=== PATIENT | male | born 1945 | race Caucasian/White ===

== ENCOUNTER → 2016-12-24 | Outpatient (CLI) | payer BC ==
[~2016-12-24] MED LIST: ASCO500T3 PO; DVN/160 PO; INDA1TAB3 PO; LUTE15CA; LUTE15CA PO; MULT-506 PO; PRLSR20 PO; RANI150T3 PO; RANI300T2 PO
[2016-12-24 13:30] LABS: BASO % 0.1 %; BASO ABS # 0.01 K/uL (0-0.2); COMPLETE YES; HEMATOCRIT 43.2 % (42-52); IG% 0.2 %; LYMPH % 15.1 %; LYMPH ABS # 1.36 K/uL (1.2-3.4); MEAN CELL VOLUME 97.5 fL (80-100); MEAN CORPUSCULAR HEMOGLOBIN 34.5 pg (25-34); MEAN CORPUSCULAR HGB CONC 35.4 g/dl (32-36); MEAN PLATELET VOLUME 9.8 fL (7.4-10.4); MONO % 10.2 %; NEUT % 72.4 %; PLATELET COUNT 236 K/uL (130-400); RED BLOOD COUNT 4.43 M/uL (4.7-6.1); WHITE BLOOD COUNT 9.02 K/uL (4.8-10.8)
[2016-12-24 14:01] LABS: BLOOD UREA NITROGEN 21 mg/dl (7-18); BUN/CREATININE RATIO 15.9 (10-20); CARBON DIOXIDE 25 mmol/L (21-32); CHLORIDE 106 mmol/L (98-107); GLUCOSE 99 mg/dl (70-99); POTASSIUM 3.8 mmol/L (3.5-5.1); SODIUM 142 mmol/L (136-145)
[2016-12-24 14:13] LABS: CALCIUM 9.3 mg/dl (8.5-10.1)
== END | disposition home or self-care (01) ==
LOC: C.LABBC 11:24
PROVIDERS: ATTEND Internal Medicine
DX: I10 Essential (primary) hypertension (principal)

== ENCOUNTER → 2017-02-06 | Day surgery (SDC) | payer BC ==
[2017-01-30 13:08] VITALS: BMI 31.0
[~2017-02-06] VITALS: Ht 182.9 cm; Wt 106.8 kg
[~2017-02-06] MED LIST changes: +LIDOCAINE HCL 2% 2 ML VIAL (20MG/ML) ONE; -LUTE15CA; +PROPOFOL IV EMULSION 10 MG/ML 20 ML VIAL IV ONE; -RANI150T3 PO; +SODIUM CHLORIDE 0.9% 500ML 500 ML IV ONE
[2017-02-06 14:49] VITALS: Ht 182.9 cm; Wt 106.8 kg
[2017-02-06 14:51] VITALS: TEMP 36.7
--- NOTE | 2017-02-06 15:36 | Endo History and Physical ---
History & Physical Date of Service: Feb 06, 2017. Chief Complaint: CHANGE IN BOWEL HABITS Referring Physician: DR RASMUSSEN History of Present Illness 71 yo CM who presents for Colonoscopy secondary to change in bowel habits. 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) Hx Thoracic Surgery: No Hx Orthopedic: Yes (RT KNEE SX X 3, LEFT KNEE SX X2) Hx Urinary Tract Surgery: No Family History None Social History Smoking Status: Never Smoker Hx Substance Use: No Hx Alcohol Use: No Allergies Coded Allergies: Penicillins (Verified Allergy, Unknown, ITCHING/FEVER, 01/30/17) Uncoded Allergies: SEAFOOD (Allergy, Unknown, vomiting, 10/31/11) Current Medications Reported Home Medications Medications Dose Route/Sig Max Daily Dose Days Date Category Vitamin C (Ascorbic Acid) 500 Mg Tab 1 Tab PO HS 01/30/17 Reported Lutein (Lutein-Zeaxanthin) 1 Cap Cap 1 Cap PO HS 01/30/17 Reported Zantac (Ranitidine HCl) 300 Mg Tab 300 Mg PO HS 01/30/17 Reported Multivitamin (Multivitamins) Tab 1 Tab PO QAM 01/30/17 Reported Prilosec (Omeprazole) 20 Mg Capcr 20 Mg PO Q2D 01/30/17 Reported Diovan (Valsartan) 160 Mg Tab 160 Mg PO QAM 01/30/17 Reported Lozol (Indapamide) 1.25 Mg Tab 1.25 Mg PO QAM 10/31/11 Reported Vital Signs Weight (Kilograms): 106.82 Height (Feet): 6 Height (Inches): 0 Date Time Temp Pulse Resp B/P (MAP) Pulse Ox O2 Delivery O2 Flow Rate FiO2 02/06/17 14:51 36.7 87 20 142/81 (101) 96 Room Air Physical Exam General Appearance: WD/WN, no apparent distress Respiratory/Chest: Auscultation: breath sounds normal Cardiovascular: Heart Auscultation: RRR Abdomen: Bowel Sounds: normal Inspection & Palpation: soft, non-distended, no tenderness, guarding & rebound Assessment and Plan Assessment: 71 yo CM who presents for Colonoscopy secondary to change in bowel habits. Plan: Proceed with colonoscopy.
--- NOTE | 2017-02-06 16:00 | Discharge Instructions ---
Endoscopy Patient Instructions Date / Procedure(s) Performed Feb 06, 2017. Colonoscopy Allergy Information Coded Allergies: Penicillins (Verified Allergy, Unknown, ITCHING/FEVER, 01/30/17) Uncoded Allergies: SEAFOOD (Allergy, Unknown, vomiting, 10/31/11) Discharge Date / Findings Feb 06, 2017. Rectal polyp Colon polyp Medication Instructions OK to resume all medications today as prescribed Reported Home Medications Medications Dose Route/Sig Max Daily Dose Days Date Category Vitamin C (Ascorbic Acid) 500 Mg Tab 1 Tab PO HS 01/30/17 Reported Lutein (Lutein-Zeaxanthin) 1 Cap Cap 1 Cap PO HS 01/30/17 Reported Zantac (Ranitidine HCl) 300 Mg Tab 300 Mg PO HS 01/30/17 Reported Multivitamin (Multivitamins) Tab 1 Tab PO QAM 01/30/17 Reported Prilosec (Omeprazole) 20 Mg Capcr 20 Mg PO Q2D 01/30/17 Reported Diovan (Valsartan) 160 Mg Tab 160 Mg PO QAM 01/30/17 Reported Lozol (Indapamide) 1.25 Mg Tab 1.25 Mg PO QAM 10/31/11 Reported Provider Instructions Activity Restrictions - No exercising or heavy lifting for 24 hours. - Do not drink alcohol the day of the procedure. - Do not drive a car or operate machinery until the day after the procedure. - Do not make any important decisions or sign important papers in 24 hours after the procedure. Following Day: - Return to full activity which may include returning to work/school. Diet Start your diet with liquids and light foods (jello, soup, juice, toast). Then eat your usual diet if not nauseated. Treatment For Common After Affects For mild abdominal pain, bloating, or excessive gas: - Rest - Eat lightly - Lie on right side Follow-Up Information Follow-up with DR RASMUSSEN as scheduled Anesthesia Information What You Should Know You have had a procedure that required some medicine to reduce anxiety and discomfort. This treatment is called moderate sedation. After receiving the treatment, you may be sleepy, but you will be able to breathe on your own. The effects of the treatment may last for several hours. Follow these instructions along with Activity/Diet recommendations noted above: * Do NOT do anything where dizziness or clumsiness would be dangerous. * Rest quietly at home today, then you can be up and about tomorrow. * Have a responsible person stay with you the rest of today. * You may have had an I.V. today. If so, you may take the dressing off later today. Recommendations Call your doctor if: * Trouble breathing * Continuous vomiting for more than 24 hours * Temperature above 101 degrees * Severe abdominal pain or bloating * Pain not relieved by pain medicine ordered * There is increased drainage or redness from any incision * A large amount of rectal bleeding greater than 2-3 tablespoons. (If you had a polyp/s removed or have hemorrhoids, a small amount of blood - from the rectum is to be expected.) * You have any unanswered questions or concerns. IN THE EVENT OF A SERIOUS EMERGENCY, GO TO THE NEAREST EMERGENCY ROOM Your discharge instructions were prepared by provider Paul Granados. Patient Instructions Signature Page Gurpreet Pal Patient (or Guardian) Signature/Date: I have read and understand the instructions given to me by my caregivers. Caregiver/RN/Doctor Signature/Date: The above-named patient and/or guardian has received patient instructions on this date. + Original Patient Signature Page (only) stays with chart. Please make copy for patient.
--- NOTE | 2017-02-06 16:20 | GI REPORT ---
Procedure Date: 02/06/2017 3:29 PM Procedure: Colonoscopy Indications: Change in bowel habits Medicines: Monitored Anesthesia Care Complications: No immediate complications. Estimated Blood Loss: Estimated blood loss: none. Procedure: Pre-Anesthesia Assessment: - Prior to the procedure, a History and Physical was performed, and patient medications and allergies were reviewed. The patient's tolerance of previous anesthesia was also reviewed. The risks and benefits of the procedure and the sedation options and risks were discussed with the patient. All questions were answered, and informed consent was obtained. Prior Anticoagulants: The patient has taken no previous anticoagulant or antiplatelet agents. ASA Grade Assessment: II - A patient with mild systemic disease. After reviewing the risks and benefits, the patient was deemed in satisfactory condition to undergo the procedure. After I obtained informed consent, the scope was passed under direct vision. Throughout the procedure, the patient's blood pressure, pulse, and oxygen saturations were monitored continuously. The scope was introduced through the anus and advanced to the terminal ileum. The colonoscopy was performed without difficulty. The patient tolerated the procedure well. The quality of the bowel preparation was good. The terminal ileum, ileocecal valve, appendiceal orifice, and rectum were photographed. Findings: Two sessile polyps were found in the rectum and in the ascending colon. The polyps were 3 to 4 mm in size. These polyps were removed with a hot snare. Resection and retrieval were complete. Non-bleeding internal hemorrhoids were found during retroflexion. The hemorrhoids were small. Impression: - Two 3 to 4 mm polyps in the rectum and in the ascending colon, removed with a hot snare. Resected and retrieved. - Non-bleeding internal hemorrhoids. Recommendation: - Resume previous diet. - Continue present medications. - Repeat colonoscopy for surveillance based on pathology results. - Return to primary care physician as previously scheduled. Paul Granados DO 02/06/2017 4:19:32 PM This report has been signed electronically. Note Initiated On: 02/06/2017 3:29 PM I attest to the content of the Intraoperative Record and orders documented therein, exceptions below
[2017-02-06 16:35] VITALS: BP 121/78; PULSE 79; O2SAT 95
--- NOTE | 2017-02-06 23:38 | Anesthesiology Progress Note ---
Anesthesia Post Op Note Date & Time Feb 06, 2017 at 1640 Vital Signs Pain Intensity: 0 Vital Signs Past 12 Hours Date Time Temp Pulse Resp B/P (MAP) Pulse Ox O2 Delivery O2 Flow Rate FiO2 02/06/17 16:35 79 20 121/78 (92) 95 Room Air 02/06/17 16:19 80 20 121/59 (79) 94 02/06/17 16:04 70 20 114/69 (84) 95 Room Air 02/06/17 14:51 36.7 87 20 142/81 (101) 96 Room Air Notes Mental Status: alert / awake / arousable, participated in evaluation Pt Amnestic to Procedure: Yes Nausea / Vomiting: adequately controlled Pain: adequately controlled Airway Patency, RR, SpO2: stable & adequate BP & HR: stable & adequate Hydration State: stable & adequate Anesthetic Complications: no major complications apparent
== END | disposition home or self-care (01) ==
LOC: C.GI 14:32
PROVIDERS: ATTEND Internal Medicine
DX: R19.4 Change in bowel habit (principal); D12.2 Benign neoplasm of ascending colon; K62.1 Rectal polyp; K64.8 Other hemorrhoids; M19.90 Unspecified osteoarthritis, unspecified site; I10 Essential (primary) hypertension; Z90.89 Acquired absence of other organs; J45.909 Unspecified asthma, uncomplicated; K21.9 Gastro-esophageal reflux disease without esophagitis; Z85.828 Personal history of other malignant neoplasm of skin

== ENCOUNTER → 2017-06-07 | Outpatient (CLI) | payer BC ==
[~2017-06-07] MED LIST changes: -LIDOCAINE HCL 2% 2 ML VIAL (20MG/ML) ONE; -PROPOFOL IV EMULSION 10 MG/ML 20 ML VIAL IV ONE; -SODIUM CHLORIDE 0.9% 500ML 500 ML IV ONE
[2017-06-07 13:38] LABS: BASO % 0.1 %; BASO ABS # 0.01 K/uL (0-0.2); COMPLETE YES; HEMATOCRIT 43.3 % (42-52); IG% 0.1 %; LYMPH % 15.4 %; LYMPH ABS # 1.23 K/uL (1.2-3.4); MEAN CELL VOLUME 98.2 fL (80-100); MEAN CORPUSCULAR HEMOGLOBIN 33.8 pg (25-34); MEAN CORPUSCULAR HGB CONC 34.4 g/dl (32-36); MEAN PLATELET VOLUME 9.9 fL (7.4-10.4); MONO % 11.6 %; NEUT % 70.8 %; PLATELET COUNT 235 K/uL (130-400); RED BLOOD COUNT 4.41 M/uL (4.7-6.1)
[2017-06-07 13:57] LABS: BLOOD UREA NITROGEN 22 mg/dl (7-18); BUN/CREATININE RATIO 18.1 (10-20); CALCIUM 8.9 mg/dl (8.5-10.1); CARBON DIOXIDE 26 mmol/L (21-32); CHLORIDE 106 mmol/L (98-107); CREATININE 1.23 mg/dl (0.60-1.40); GLUCOSE 107 mg/dl (70-99); POTASSIUM 3.9 mmol/L (3.5-5.1); SODIUM 140 mmol/L (136-145); URIC ACID 7.8 mg/dl (2.6-7.2)
[2017-06-07 14:01] LABS: ESTIMATED AVERAGE GLUCOSE 123 mg/dl; HA1C FLAG Normal (Normal)
[2017-06-07 14:05] LABS: URINE APPEARANCE CLEAR (CLEAR); URINE BILIRUBIN NEG (NEG); URINE COLOR YELLOW; URINE EPITHELIAL CELL AUTO 0-5 /lpf (0-5); URINE NITRITE NEG (NEG); URINE SPECIFIC GRAVITY 1.018 (1.000-1.030); UROBILINOGEN NEG (NEG)
[2017-06-07 14:08] LABS: CHOLESTEROL 121 mg/dl (0-200); HDL CHOLESTEROL 41 mg/dl; LDL CHOLESTEROL CALCULATED 64 mg/dl; TRIGLYCERIDES 79 mg/dl (0-150); VERY LOW DENSITY LIPOPROT CALC 16 mg/dl
[2017-06-07 14:14] LABS: MANUAL MICROSCOPIC REQUIRED? NO; REVIEW REQ? NO
== END | disposition home or self-care (01) ==
LOC: C.LABBC 12:16
PROVIDERS: ATTEND Internal Medicine
DX: I10 Essential (primary) hypertension (principal)

== ENCOUNTER → 2017-07-08 | Outpatient (CLI) | payer BC | END | disposition home or self-care (01) | LOC: C.LAB1850 14:40 | PROVIDERS: ATTEND Internal Medicine | DX: I10 Essential (primary) hypertension (principal) ==

== ENCOUNTER 2020-02-18 13:49 | Observation (INO) ==
[2020-02-18] MEDS ORDERED: ASPIRIN CHEW 324 MG PO STA (14:05)
--- NOTE | 2020-02-18 14:05 | Emergency Department Note ---
Impression & Plan Angina pectoris, unstable, Chest pain, Abnormal ECG ED Provider Note NAME: DEBBIE HINTON AGE: 74 SEX: M : 1945 ARRIVES VIA: Walk-In INFORMANT: Patient ED PROVIDER(S): Edi Bailey DO CHIEF COMPLAINT: Exertional chest pain HPI: Patient is a 74-year-old male with past medical history of hypertension presents the ER for exertional chest pain which is been present for the past 2 weeks. He notes he gets a tightness in the middle of his chest. It resolves with rest. Last pain was last Saturday. He denies any shortness of breath with it he does get some left arm numbness. No jaw pain. No belly pain nausea vomiting or diarrhea. No dysuria urgency or frequency. Patient saw cardiology who referred him into the ER. ROS: See above HPI for pertinent positives & negatives. A total of 10 systems reviewed and were otherwise negative. PAST MEDICAL HISTORY:See Below PAST SURGICAL HISTORY:See Below FAMILY HISTORY:See Below SOCIAL HISTORY:See Below HOME MEDICATIONS:See Below ALLERGIES:See Below VITALS:See Below PHYSICAL EXAMINATION: GENERAL: Sitting up in bed, alert, well appearing, well nourished, no distress, non-toxic EYE EXAM: normal conjunctiva. OROPHARYNX: no exudate, no erythema, lips, buccal mucosa, and tongue normal and mucous membranes are moist NECK: supple, no nuchal rigidity, no adenopathy, non-tender LUNGS: Clear to auscultation. Normal chest wall mechanics HEART: no murmurs, S1 normal and S2 normal ABDOMEN: abdomen soft, non-tender, normo-active bowel sounds, no masses, no rebound or guarding. BACK: Back is symmetrical on inspection and there is no deformity, no midline tenderness, no CVA tenderness. SKIN: no rashes and no bruising UPPER EXTREMITIES: upper extremities are grossly normal. LOWER EXTREMITIES: No pitting edema. NEURO EXAM: Normal sensorium, cranial nerves II-XII grossly intact, normal speech, no gross weakness of arms, no gross weakness of legs. MEDICAL DECISION MAKING: Patient is a 74-year-old male with a past medical history of hypertension who presents the ER for exertional chest pain which has been present for the past 2 weeks. He notes has not been doing much since this past Saturday so he does not reduce it. It resolves with rest. He was seen by his PCP and had an EKG and was referred in as they were unable to get a stress echo as an outpatient. Patient is completely asymptomatic. IV was established blood work was obtained. Labs were obtained and show no significant leukocytosis or anemia. INR was unremarkable. BMP with LFTs bilirubin and lipase was normal. Troponin was detectable but not positive. EKG was abnormal. This is in comparison to his old EKG from early 1999. Chest x-ray was unremarkable. He was updated bedside. Discussed with the hospitalist and will be admitted for further work-up. Triage Nursing notes reviewed. Prior medical records reviewed Vital Signs: reviewed and remarkable for HTN Differential diagnosis: Differential diagnoses includes but is not limited to acute coronary syndrome, myocardial infarction, pericarditis, pulmonary embolus, aortic dissection, pn eumonia, pneumothorax, musculoskeletal, shingles, esophageal. ER treatment provided: See below Diagnostics interpreted by me: ECG: Sinus rhythm rate 84 Left axis TWI in the high lateral leads septal anterior. Cardiac Monitoring: An order was placed for continuous cardiac monitoring. The monitor shows a rate of 96 with sinus rhythm. Laboratory studies: As stated above and show below. Imaging studies: Portable AP upright 1 view of the chest shows no focal infiltrate or pneumothorax. Consultation(s): Discussed with hospitalist for admission. ED COURSE: Procedures: none Critical Care: None Past Med/Surg History Medical History (Updated 02/18/20 @ 18:12 by JOHN Kennedy) Abnormal penile discharge, with blood (Resolved) Angina pectoris, unstable (Acute) History of basal cell carcinoma (Resolved) History of squamous cell carcinoma (Resolved) Impotence, organic (Inactive) Internal hemorrhoids (Inactive) Laryngopharyngeal reflux (Inactive) Mild sleep apnea (Inactive) Nontoxic uninodular goiter (Inactive) Osteoarthritis (Inactive) PVC's (premature ventricular contractions) (Chronic) Surgical History History of appendectomy (Resolved) History of colonoscopy (Resolved) x2 History of knee surgery (Resolved) History of tonsillectomy (Resolved) Family History Father Myocardial infarction Hypertension Social History Smoking Status: Never smoker Hx Alcohol Use: No Hx Substance Use: No Preferred Language: Palestinian Communication Ability: Effective Beliefs That Will Affect Care: None marital status: Current Living Situation: Spouse current occupational status: retired Feels Safe at Home: Yes Safety Concerns: Feels Safe At This Time Allergies Allergies Allergy/AdvReac Type Severity Reaction Status Date / Time Penicillins Allergy Intermediate ITCHING/FEV Verified 02/18/20 14:40 ER Fish Containing Products AdvReac Mild SEAFOOD- Verified 02/18/20 14:40 VOMITING Home Meds Home Medications Medication Instructions Recorded Confirmed alprazolam 0.25 mg tablet 0.25 mg PO BID PRN 03/24/19 02/18/20 multivitamin 1 tab PO DAILY 03/24/19 02/18/20 Previous Rx's Medication Instructions Recorded indapamide 1.25 mg tablet 1.25 mg PO QAM #90 tab 06/22/19 losartan 100 mg tablet 100 mg PO DAILY #90 tab 11/16/19 omeprazole 40 mg capsule,delayed 40 mg PO DAILY #30 cap 02/18/20 release Results & Data (ED) Vital Signs Vital Signs - 24 hr 02/18/20 13:51 02/18/20 14:09 02/18/20 14:15 Temperature 36.9 C Temperature Source Oral Pulse Rate 99 H 90 87 Pulse Rate from SpO2 Sensor 91 H Pulse Rhythm Regular Respiratory Rate 16 15 18 Blood Pressure 171/95 H 133/90 Blood Pressure Mean 120 109 Pulse Oximetry 96 96 95 Oxygen Delivery Method Room Air Room Air Room Air Sepsis Recent Fever Within 48 Hours No Sepsis New/Unexplained Change in Mental Status N/A Sepsis Action Taken by Nursing No Action Required 02/18/20 14:30 02/18/20 16:01 02/18/20 16:30 Temperature Temperature Source Pulse Rate 77 68 69 Pulse Rate from SpO2 Sensor 77 68 68 Pulse Rhythm Respiratory Rate 24 20 21 Blood Pressure 113/73 140/82 129/86 Blood Pressure Mean 80 105 100 Pulse Oximetry 93 96 96 Oxygen Delivery Method Room Air Room Air Room Air Sepsis Recent Fever Within 48 Hours Sepsis New/Unexplained Change in Mental Status Sepsis Action Taken by Nursing 02/18/20 17:00 02/18/20 17:30 02/18/20 18:00 Temperature Temperature Source Pulse Rate 69 67 67 Pulse Rate from SpO2 Sensor 68 66 68 Pulse Rhythm Respiratory Rate 16 19 20 Blood Pressure 127/85 120/77 122/77 Blood Pressure Mean 105 93 90 Pulse Oximetry 96 97 99 Oxygen Delivery Method Room Air Room Air Room Air Sepsis Recent Fever Within 48 Hours Sepsis New/Unexplained Change in Mental Status Sepsis Action Taken by Nursing Laboratory Data Result diagrams: 02/18/20 14:10 02/18/20 14:10 Lab Results 02/18/20 02/18/20 02/18/20 Range/Units 14:10 14:10 14:10 WBC 7.71 (4.8-10.8) K/uL RBC 4.41 L (4.7-6.1) M/uL Hgb 15.0 (14.0-18.0) g/dL Hct 43.7 (42-52) % MCV 99.1 (80-100) fL MCH 34.0 (25-34) pg MCHC 34.3 (32-36) g/dL RDW Std Deviation 44.8 (36.4-46.3) fL RDW Coeff of Cameron 12.4 (11.5-14.5) % Plt Count 245 (130-400) K/uL MPV 9.6 (7.4-10.4) fL Immature Gran % (Auto) 0.1 % Neut % (Auto) 71.0 % Lymph % (Auto) 19.2 % [place] % (Auto) 8.4 % Eos % (Auto) 1.2 % Baso % (Auto) 0.1 % Neut # (Auto) 5.47 (1.4-6.5) K/uL Lymph # (Auto) 1.48 (1.2-3.4) K/uL [place] # (Auto) 0.65 H (0.11-0.59) K/uL Eos # (Auto) 0.09 (0-0.5) K/uL Baso # (Auto) 0.01 (0-0.2) K/uL Immature Gran # (Auto) 0.01 (0.00-0.02) K/uL PT 10.8 (9.0-12.0) Seconds INR 1.0 (0.9-1.1) APTT 26.1 (21.0-31.0) Seconds PTT Ratio 0.9 Sodium 138 (136-145) mmol/L Potassium 3.7 (3.5-5.1) mmol/L Chloride 106 (98-107) mmol/L Carbon Dioxide 26 (21-32) mmol/L Anion Gap 7.0 (3-11) BUN 20 H (7-18) mg/dl Creatinine 1.25 (0.6-1.4) mg/dl Est Cr Clr Drug Dosing 65.5 ml/min Est GFR ( Amer) 65.3 Est GFR (Non-Af Amer) 56.4 BUN/Creatinine Ratio 15.6 (10-20) Glucose 122 H (70-99) mg/dl Calcium 9.1 (8.5-10.1) mg/dl Total Bilirubin 0.7 (0.2-1) mg/dl AST 12 L (15-37) U/L ALT 27 (12-78) U/L Alkaline Phosphatase 67 (45-117) U/L Troponin I 0.018 (0-0.045) ng/ml Total Protein 7.7 (6.4-8.2) gm/dl Albumin 3.9 (3.4-5.0) gm/dl Globulin 3.8 (2.5-4.0) gm/dl Albumin/Globulin Ratio 1.0 (0.9-2) Lipase 132 (73-393) U/L Administered Medications Discontinued Medications Aspirin (Aspirin) 324 mg PO NOW STA Stop: 02/18/20 14:06 Last Admin: 02/18/20 14:14 Dose: 324 mg Documented by: [id number] Discharge Plan Visit Data Chief Complaint: Cardiac Assessment Stated Complaint: CHEST PAIN,ABNORMAL EKG ED Provider: Edi Bailey Discharge Problem: Angina pectoris, unstable, Chest pain, Abnormal ECG Forms Stand Alone Forms: [facility] [employer] Prescriptions Prescriptions: No Action alprazolam 0.25 mg tablet 0.25 mg PO BID PRN (Reason: anxiety) RF: 0 multivitamin [Daily Multi-Vitamin] tablet 1 tab PO DAILY RF: 0 indapamide 1.25 mg tablet 1.25 mg PO QAM Qty: 90 RF: 3 losartan [Cozaar] 100 mg tablet 100 mg PO DAILY Qty: 90 RF: 3 omeprazole 40 mg capsule,delayed release(DR/EC) 40 mg PO DAILY Qty: 30 RF: 1 Discharge Problem: Chest pain Qualifiers: Chest pain type: unspecified Qualified Code(s): R07.9 - Chest pain, unspecified
[2020-02-18 14:19] LABS: Basophils # (auto) 0.01 K/uL (0-0.2); Basophils % (auto) 0.1 %; Eosinophils # (auto) 0.09 K/uL (0-0.5); Eosinophils % (auto) 1.2 %; Hematocrit (blood only) 43.7 % (42-52); Immature Granulocytes # (auto) 0.01 K/uL (0.00-0.02); Immature Granulocytes % (auto) 0.1 %; Lymphocytes # (auto) 1.48 K/uL (1.2-3.4); Lymphocytes % (auto) 19.2 %; Mean Corpuscular Hgb Conc 34.3 g/dL (32-36); Mean Corpuscular Volume 99.1 fL (80-100); Mean Platelet Volume 9.6 fL (7.4-10.4); Monocytes # (auto) 0.65 K/uL (0.11-0.59); Monocytes % (auto) 8.4 %; Neutrophils # (auto) 5.47 K/uL (1.4-6.5); Platelet Count 245 K/uL (130-400); RDW Coefficient of Variation 12.4 % (11.5-14.5); RDW Standard Deviation 44.8 fL (36.4-46.3); Red Blood Count 4.41 M/uL (4.7-6.1); White Blood Count 7.71 K/uL (4.8-10.8)
--- NOTE | 2020-02-18 14:20 | XRay Report ---
XR chest 1V portable HISTORY: 74 years-old Male Chest Pain acute atypical chest pain COMPARISON: Chest CT 10/31/2011 TECHNIQUE: Portable AP view of the chest FINDINGS: Cardiomediastinal and hilar silhouettes are within normal limits. There is no pneumothorax, pleural e ffusion, airspace consolidation or overt pulmonary edema. Degenerative changes of the shoulders and s pine. IMPRESSION: No acute process. ACT 112: Negative or not required by law. The above report was generated using voice recognition software. It may contain grammatical, syntax o r spelling errors. Electronically signed by: Juaquin Chiu M.D. 02/18/2020 2:19 PM
[2020-02-18 14:34] LABS: Partial Thromboplastin Ratio 0.9; Partial Thromboplastin Time 26.1 Seconds (21.0-31.0); Prothrombin Time 10.8 Seconds (9.0-12.0)
[2020-02-18 14:35] LABS: Albumin Level 3.9 gm/dl (3.4-5.0); BUN Creatinine Ratio 15.6 (10-20); Calcium 9.1 mg/dl (8.5-10.1); Creatinine Clr Calc Pharmacy 65.5 ml/min; Est GFR (African American) 65.3; Est GFR (Non-African American) 56.4; Potassium 3.7 mmol/L (3.5-5.1)
[2020-02-18 14:39] LABS: Bilirubin,Total 0.7 mg/dl (0.2-1); Globulin 3.8 gm/dl (2.5-4.0); Total Protein 7.7 gm/dl (6.4-8.2); Troponin I 0.018 ng/ml (0-0.045)
--- NOTE | 2020-02-18 15:10 | History & Physical Report ---
Date of Service February 18, 2020 Assessment & Plan (1) Angina pectoris, unstable: With typical angina for the last 2 weeks, and mildly detectable troponin here. With risk factors of age, gender, family history, and hypertension. -We will admit on observation to medical floor with telemetry for arrhythmia monitoring -Serial troponin and daily ECG will be ordered -Resting echocardiogram -We will consult cardiology to determine if should have stress testing versus cardiac catheterization -Blood pressure is well controlled at this time -We will continue aspirin 81 mg daily which was started in the ER -Check lipid panel and hemoglobin A1c in the morning as he had some mild hyperglycemia here-begin statin if proven CAD or elevated lipids -If chest pain recurs, will give nitroglycerin -Consider adding on metoprolol -Will not heparinize at this time unless troponin trends upward (2) Abnormal ECG: As noted above, with new LAFB and T wave inversions in the anterolateral leads. With unstable angina suspected as above Follow daily ECG (3) Hypertension: Blood pressures are well controlled here -Continue home indapamide and losartan (4) Hyperglycemia: Blood glucose mildly elevated here, hemoglobin A1c was in prediabetes range at 5.8% in 07/2019 -Repeat hemoglobin A1c in the morning (5) Chronic gastroesophageal reflux disease: Stable -Continue home Protonix (6) Benign prostatic hyperplasia with urinary obstruction: Not on medication for this, has occasional urine straining -Monitor for retention (7) Mild sleep apnea: Is not on CPAP for this (8) Nontoxic uninodular goiter: Followed by PCP TSH normal at 1.83 in 07/2019 (9) Osteoarthritis: Tylenol as needed for pain Avoid NSAIDs in the setting of possible CAD (10) DVT prophylaxis: Lovenox SQ, SCDs Disposition-bring into the hospital on observation for unstable angina Full code History of Present Illness Chief Complaint: Exertional chest pain Primary Care Provider: Rajinder Rubalcava MD This patient is a 74-year-old male with a history of HTN, GERD, BPH, DONTRELL, OA, PVCs, and anxiety, who presents to the ER with exertional chest pain that started 2 weeks ago. Typically is able to walk a quarter of a mile without difficulty but since 2 weeks ago he developed chest tightness with walking that resolved with rest. He also tried walking on a treadmill in the basement and when he got to 3 mph, he developed chest tightness again that was relieved with rest. The chest pressure is in the substernal area and does also radiate with some tingling sensation to the left shoulder, but otherwise no radiation. It is very mild to moderate in severity. Again, comes on with exertion and is relieved with rest. It is not associated with diaphoresis, nausea, or shortness of breath. Interestingly, he has been able to go up and down a flight of stairs at home without any problems. He has never had any issues with his heart in the past. He is a non-smoker, and has a history of hypertension, but is otherwise fairly healthy. He does have a family history of a father who had heart disease and of a heart attack at age 76, and a sister who just had open heart surgery/CABG at age 71. He called his PCPs office who recommended him to go to the emergency room but the patient did not go. His PCP then attempted to get a stress echocardiogram approved as an outpatient, but insurance required him to be seen by his PCP in the office. He came to the PCPs office today to try to get approved for stress echocardiogram, and an ECG performed there showed new anterolateral T wave inver sions. PCP then advised him to come to the ER for expedited work-up. His ECG here showed normal sinus rhythm with a left anterior fascicular block and T wave inversions in the anterolateral leads which is now changed from previous. He has not had any chest pain in the last week because he stopped exerting himself. His blood work in the ER was normal with normal CBC, coags, and BMP as well as normal LFTs. Troponin was mildly detectable at 0.018. A chest x-ray was performed which showed no acute process. He will be admitted on observation overnight for suspected unstable angina. Allergies Allergy/AdvReac Type Severity Reaction Status Date / Time Penicillins Allergy Intermediate ITCHING/FEV Verified 02/18/20 14:40 ER Fish Containing Products AdvReac Mild SEAFOOD- Verified 02/18/20 14:40 VOMITING Home Medications Home Medications Medication Instructions Recorded Confirmed Type alprazolam 0.25 mg tablet 0.25 mg PO BID PRN 03/24/19 02/18/20 History multivitamin 1 tab PO DAILY 03/24/19 02/18/20 History indapamide 1.25 mg tablet 1.25 mg PO QAM #90 tab 06/22/19 02/18/20 Rx losartan 100 mg tablet 100 mg PO DAILY #90 tab 11/16/19 02/18/20 Rx omeprazole 40 mg capsule,delayed 40 mg PO DAILY #30 cap 02/18/20 02/18/20 Rx release Past Med/Surg History Medical History Abnormal penile discharge, with blood (Resolved) Angina pectoris, unstable (Acute) History of basal cell carcinoma (Resolved) History of squamous cell carcinoma (Resolved) Impotence, organic (Inactive) Internal hemorrhoids (Inactive) Laryngopharyngeal reflux (Inactive) Mild sleep apnea (Inactive) Nontoxic uninodular goiter (Inactive) Osteoarthritis (Inactive) PVC's (premature ventricular contractions) (Chronic) Surgical History History of appendectomy (Resolved) History of colonoscopy (Resolved) x2 History of knee surgery (Resolved) History of tonsillectomy (Resolved) Family History Father Myocardial infarction Hypertension Sister Coronary heart disease, Onset Age: 71 With CABG at age 71 Social History Smoking Status: Never smoker Hx Alcohol Use: No Hx Substance Use: No Preferred Language: Macedonian Communication Ability: Effective Beliefs That Will Affect Care: None marital status: Current Living Situation: Spouse current occupational status: retired 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 No urinary symptoms out of the ordinary except his usual occasional needing to strain to get his urine out. No known contacts with COVID-19 that he has been exposed to. He has been remaining socially isolated at home Physical Exam Constitutional: WD/WN, vitals as above Eyes: PERRL, conjunctivae normal, anicteric sclerae ENMT: external ear and nose normal, oropharynx normal Neck: trachea midline, no thyromegaly Respiratory: normal respiratory effort, lungs clear to auscultation Cardiovascular: RRR, no murmur, no edema Chest (Breasts): Chest: normal inspection of chest Gastrointestinal (Abdomen): normal bowel sounds, soft, nontender, no hepatosplenomegaly Musculoskeletal: Extremities: extremities normal to inspection; no cyanosis and no clubbing Skin: no rashes, warm and dry Neurologic: moves all extremities and awake; no focal motor deficits Psychiatric: A+Ox3, euthymic affect Lymphatic: no lymphedema Results & Data Results & Data ([facility]) Vital Signs (Past 12 Hours) Vital Signs Temp Pulse Resp BP Pulse Ox 02/18/20 14:30 77 24 113/73 93 02/18/20 14:15 87 18 95 02/18/20 14:09 90 15 133/90 96 02/18/20 13:51 36.9 C 99 H 16 171/95 H 96 Laboratory Results 02/18/20 02/18/20 02/18/20 Range/Units 14:10 14:10 14:10 WBC 7.71 (4.8-10.8) K/uL RBC 4.41 L (4.7-6.1) M/uL Hgb 15.0 (14.0-18.0) g/dL Hct 43.7 (42-52) % MCV 99.1 (80-100) fL MCH 34.0 (25-34) pg MCHC 34.3 (32-36) g/dL RDW Std Deviation 44.8 (36.4-46.3) fL RDW Coeff of Cameron 12.4 (11.5-14.5) % Plt Count 245 (130-400) K/uL MPV 9.6 (7.4-10.4) fL Immature Gran % (Auto) 0.1 % Neut % (Auto) 71.0 % Lymph % (Auto) 19.2 % Webster % (Auto) 8.4 % Eos % (Auto) 1.2 % Baso % (Auto) 0.1 % Neut # (Auto) 5.47 (1.4-6.5) K/uL Lymph # (Auto) 1.48 (1.2-3.4) K/uL Webster # (Auto) 0.65 H (0.11-0.59) K/uL Eos # (Auto) 0.09 (0-0.5) K/uL Baso # (Auto) 0.01 (0-0.2) K/uL Immature Gran # (Auto) 0.01 (0.00-0.02) K/uL PT 10.8 (9.0-12.0) Seconds INR 1.0 (0.9-1.1) APTT 26.1 (21.0-31.0) Seconds PTT Ratio 0.9 Sodium 138 (136-145) mmol/L Potassium 3.7 (3.5-5.1) mmol/L Chloride 106 (98-107) mmol/L Carbon Dioxide 26 (21-32) mmol/L Anion Gap 7.0 (3-11) BUN 20 H (7-18) mg/dl Creatinine 1.25 (0.6-1.4) mg/dl Est Cr Clr Drug Dosing 65.5 ml/min Est GFR ( Amer) 65.3 Est GFR (Non-Af Amer) 56.4 BUN/Creatinine Ratio 15.6 (10-20) Glucose 122 H (70-99) mg/dl Calcium 9.1 (8.5-10.1) mg/dl Total Bilirubin 0.7 (0.2-1) mg/dl AST 12 L (15-37) U/L ALT 27 (12-78) U/L Alkaline Phosphatase 67 (45-117) U/L Troponin I 0.018 (0-0.045) ng/ml Total Protein 7.7 (6.4-8.2) gm/dl Albumin 3.9 (3.4-5.0) gm/dl Globulin 3.8 (2.5-4.0) gm/dl Albumin/Globulin Ratio 1.0 (0.9-2) Lipase 132 (73-393) U/L Diagnostic Findings Chest x-ray image personally reviewed by me and agree with the following report: XR chest 1V portable HISTORY: 74 years-old Male Chest Pain acute atypical chest pain COMPARISON: Chest CT 10/31/2011 TECHNIQUE: Portable AP view of the chest FINDINGS: Cardiomediastinal and hilar silhouettes are within normal limits. There is no pneumothorax, pleural effusion, airspace consolidation or overt pulmonary edema. Degenerative changes of the shoulders and spine. IMPRESSION: No acute process. ECG Additional Comments: ECG with normal sinus rhythm, rate 84, pulmonary disease pattern, left anterior fascicular block and anterior lateral T wave inversions- compared to previous in 2001, LAFB and T wave inversions are new Code Status & VTE Plan Code Status Full code VTE Prophylaxis Plan VTE Prophylaxis will be ordered: Yes PG Care Time/CCT Total # of Minutes Spent Total Time Spent with Patient: Total time spent is greater than 50% in coordination of care (as documented) at patient's floor/unit and/or counseling patient: Coding Level of Care Code 11797 OBS Care - Level 3 Diagnoses Angina pectoris, unstable I20.0 Abnormal ECG R94.31 Hypertension I10 Hyperglycemia R73.9 Chronic gastroesophageal reflux disease K21.9 Benign prostatic hyperplasia with urinary obstruction N40.1; N13.8 Mild sleep apnea G47.30 Nontoxic uninodular goiter E04.1 Osteoarthritis M19.90 DVT prophylaxis Z29.9
--- NOTE | 2020-02-18 16:38 | Electrocardiogram Report ---
Test Reason : Blood Pressure : / mmHG Vent. Rate : 084 BPM Atrial Rate : 084 BPM P-R Int : 168 ms QRS Dur : 080 ms QT Int : 398 ms P-R-T Axes : 050 -56 096 degrees QTc Int : 470 ms Normal sinus rhythm Pulmonary disease pattern Left anterior fascicular block T wave abnormality, consider anterolateral ischemia Prolonged QT Abnormal ECG When compared with ECG of 31-JUL-2000 13:28, Left anterior fascicular block is now Present T wave inversion now evident in Anterolateral leads Confirmed by Johnny Ballesteros ([id number]) on 02/18/2020 4:37:29 PM Referred By: Macrina Ocampo Confirmed By:Johnny Ballesteros
[2020-02-18] MEDS ORDERED: ALUMINUM/MAGNESIUM SUSP 30 ML UDC PO PRN (21:31)
[2020-02-18] MEDS ORDERED: ACETAMINOPHEN 325 MG TAB PO PRN (21:31)
[2020-02-18] MEDS ORDERED: POLYETHYLENE (MIRALAX) 17 GM PACK PO PRN (21:31)
[2020-02-18] MEDS ORDERED: ALPRAZolam 0.25 MG TABLET PO PRN (21:31)
[2020-02-18] MEDS ORDERED: NITROGLYCERIN SL 0.4 MG/TAB TAB SL PRN (21:31)
[2020-02-18] MEDS ORDERED: ONDANSETRON INJ 2 MG/ML 2 ML VIAL IV PRN (21:31)
[2020-02-18] MEDS: ENOXAPARIN INJ 40 MG/0.4 ML SYR SQ SCH (22:37)
[2020-02-19 06:11] LABS: Estimated Average Glucose 123 mg/dl; Hemoglobin A1C 5.9 % (4.5-5.6)
[2020-02-19 06:36] LABS: BUN Creatinine Ratio 16.1 (10-20); Calcium 8.6 mg/dl (8.5-10.1); Est GFR (African American) 74.6; Est GFR (Non-African American) 64.4; Potassium 3.7 mmol/L (3.5-5.1)
[2020-02-19] MEDS: LOSARTAN POTASSIUM 50 MG TAB PO SCH (08:18)
[2020-02-19] MEDS: PANTOprazole 40 MG TAB PO SCH (08:19)
[2020-02-19] MEDS: ASPIRIN 81 MG ECTAB PO SCH (08:19)
[2020-02-19] MEDS: INDAPAMIDE 1.25 MG TAB PO SCH (08:19)
[2020-02-19] MEDS: MULTIVITAMIN TAB PO SCH (08:19)
--- NOTE | 2020-02-19 12:22 | Cardiology Consultation ---
Date of Consultation February 19, 2020 Assessment & Plan (1) Chest tightness or pressure: He describes symptoms of exertional chest discomfort which are classic for angina. They started 2 weeks ago and have continued. The symptoms occur with minimal activity and are relieved by rest. He is describing unstable angina. With his classic symptoms and his abnormal electrocardiogram I would be reluctant to perform a treadmill stress test. I think the best approach is cardiac catheterization for definitive diagnosis and possible treatment. He is agreeable but is going to talk to his . I would like to do the procedure this afternoon. (2) Abnormal ECG: He has an abnormal electrocardiogram with inferolateral T wave inversions that have been present both yesterday and today, they were not present on a prior electrocardiogram in 2013 and he had negative stress test in 2015 and I assume had a normal ECG then although I do not have the result. These electrocardiographic changes are consistent with ischemia, not infarction. History of Present Illness Reason for Consultation: Exertional chest discomfort Attending Physician: Rajinder Tate History of Present Illness This is a 74-year-old male with a history of hypertension, GERD and anxiety who has recently developed exertional chest discomfort. He is very active, he typically walks on a regular basis and then about 2 weeks ago developed substernal chest tightness while walking. He stopped and the discomfort was relieved. He does have some left shoulder and left arm tingling with it. He has had this symptoms reproducibly now when he walks on his treadmill, again relieved by rest. He has had no rest pain and has not had no prolonged discomfort. The symptoms have persisted for the last 2 weeks. He was seen in the [facility] physician group office on February 18, 2020 and an electrocardiogram was done which showed inferolateral T wave inversions. He therefore was sent to the emergency room. Since presentation here he has had no further discomfort but has not been active.. His electrocardiograms have again shown these abnormalities, both yesterday and today, and his cardiac enzymes have been within the normal range. Allergies Allergy/AdvReac Type Severity Reaction Status Date / Time Penicillins Allergy Intermediate ITCHING/FEV Verified 02/18/20 14:40 ER Fish Containing Products AdvReac Mild SEAFOOD- Verified 02/18/20 14:40 VOMITING Home Medications Home Medications Medication Instructions Recorded Confirmed Type alprazolam 0.25 mg tablet 0.25 mg PO BID PRN 03/24/19 02/18/20 History multivitamin 1 tab PO DAILY 03/24/19 02/18/20 History indapamide 1.25 mg tablet 1.25 mg PO QAM #90 tab 06/22/19 02/18/20 Rx losartan 100 mg tablet 100 mg PO DAILY #90 tab 11/16/19 02/18/20 Rx omeprazole 40 mg capsule,delayed 40 mg PO DAILY #30 cap 02/18/20 02/18/20 Rx release Patient History Medical History Abnormal penile discharge, with blood (Resolved) Angina pectoris, unstable (Acute) History of basal cell carcinoma (Resolved) History of squamous cell carcinoma (Resolved) Impotence, organic (Inactive) Internal hemorrhoids (Inactive) Laryngopharyngeal reflux (Inactive) Mild sleep apnea (Inactive) Nontoxic uninodular goiter (Inactive) Osteoarthritis (Inactive) PVC's (premature ventricular contractions) (Chronic) Surgical History History of appendectomy (Resolved) History of colonoscopy (Resolved) x2 History of knee surgery (Resolved) History of tonsillectomy (Resolved) Family History Father Myocardial infarction Hypertension Sister Coronary heart disease, Onset Age: 71 With CABG at age 71 Social History Smoking Status: Never smoker Hx Alcohol Use: No Hx Substance Use: No Preferred Language: Vietnamese Communication Ability: Effective Beliefs That Will Affect Care: None marital status: Current Living Situation: Spouse current occupational status: retired 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 HEENT: Unremarkable Neck: No jugular venous distention, carotid pulses are normal and equal bilaterally without bruits. Pulmonary: Clear to auscultation bilaterally. Cardiac: Regular rhythm with no murmur, gallop or rub. Abdomen: Soft, nontender with normal bowel sounds. Extremities: No edema. Distal pulses intact. Neurologic: No focal findings. Gait is steady. Skin: No rash, ecchymoses or petechiae. Results & Data ([facility]) Vital Signs (Past 12 Hours) Vital Signs Temp Pulse Pulse Resp BP Pulse Ox 02/19/20 11:44 37.0 C 74 18 124/78 96 02/19/20 07:34 36.6 C 77 19 135/85 94 02/19/20 03:51 36.4 C L 68 16 126/48 L 95 02/19/20 01:37 66 Diagnostic Findings Cardiac Enzymes 02/18/20 02/18/20 02/19/20 Range/Units 14:10 21:31 05:35 AST 12 L (15-37) U/L Troponin I 0.018 0.017 0.023 (0-0.045) ng/ml Coagulation 02/18/20 Range/Units 14:10 PT 10.8 (9.0-12.0) Seconds APTT 26.1 (21.0-31.0) Seconds Lipids 02/19/20 Range/Units 05:35 Triglycerides 95 (0-150) mg/dl Cholesterol 108 (0-200) mg/dl HDL Cholesterol 31 mg/dl Cholesterol/HDL Ratio 4 CBC 02/18/20 Range/Units 14:10 WBC 7.71 (4.8-10.8) K/uL RBC 4.41 L (4.7-6.1) M/uL Hgb 15.0 (14.0-18.0) g/dL Hct 43.7 (42-52) % Plt Count 245 (130-400) K/uL Neut # (Auto) 5.47 (1.4-6.5) K/uL Lymph # (Auto) 1.48 (1.2-3.4) K/uL Bath # (Auto) 0.65 H (0.11-0.59) K/uL Eos # (Auto) 0.09 (0-0.5) K/uL Baso # (Auto) 0.01 (0-0.2) K/uL Comprehensive Metabolic Panel 02/18/20 02/19/20 Range/Units 14:10 05:35 Sodium 138 142 (136-145) mmol/L Potassium 3.7 3.7 (3.5-5.1) mmol/L Chloride 106 108 H (98-107) mmol/L Carbon Dioxide 26 29 (21-32) mmol/L BUN 20 H 18 (7-18) mg/dl Creatinine 1.25 1.12 (0.6-1.4) mg/dl Glucose 122 H 92 (70-99) mg/dl Calcium 9.1 8.6 (8.5-10.1) mg/dl AST 12 L (15-37) U/L ALT 27 (12-78) U/L Alkaline Phosphatase 67 (45-117) U/L Total Protein 7.7 (6.4-8.2) gm/dl Albumin 3.9 (3.4-5.0) gm/dl Intake and Output 02/18/20 02/19/20 02/19/20 22:59 06:59 14:59 Other: Other Intake Source npo Weight 107 kg 106.5 kg PG Care Time/CCT Total # of Minutes Spent Total Time Spent with Patient: Total time spent is greater than 50% in coordination of care (as documented) at patient's floor/unit and/or counseling patient: Coding Level of Care Code 01539 Initial Inpt Care Lvl 3 Diagnoses Chest tightness or pressure R07.89 Abnormal ECG R94.31
[2020-02-19] MEDS ORDERED: MIDAZOLAM HCL 1 MG/ML 2ML VIAL ONE (12:51)
[2020-02-19] MEDS ORDERED: NiCARDipine HCL INJ 2.5 MG/ML 10 ML AMP ONE (12:51)
[2020-02-19] MEDS ORDERED: HEPARIN (PORCINE) 1000 UNIT/ML 10 ML (CATH LAB USE ONLY) ONE (12:51)
[2020-02-19] MEDS ORDERED: fentaNYL citrate 100 MCG/2 ML VIAL ONE (12:51)
[2020-02-19] MEDS ORDERED: NITROGLYCERIN/D5W 100MCG/ML 20ML SYR ONE (12:52)
--- NOTE | 2020-02-19 13:12 | XCELERA ---
[id number]
--- NOTE | 2020-02-19 14:02 | Pre Anesthesia Assessment ---
Date of Service February 19, 2020 Pre Sedation Assessment Vital Signs Temp Pulse Pulse Resp BP BP Pulse Ox 02/19/20 13:50 70 16 128/73 95 02/19/20 13:45 70 16 130/80 95 02/19/20 11:44 98.6 F 74 18 124/78 96 02/19/20 07:34 97.9 F 77 19 135/85 94 02/19/20 03:51 97.5 F L 68 16 126/48 L 95 02/19/20 01:37 66 02/18/20 23:13 98.2 F 78 20 117/84 95 02/18/20 20:50 73 22 137/84 95 02/18/20 20:00 73 22 137/84 95 02/18/20 19:30 73 18 127/93 97 02/18/20 19:07 87 24 143/77 H 97 02/18/20 18:00 67 20 122/77 99 02/18/20 17:30 67 19 120/77 97 02/18/20 17:00 69 16 127/85 96 02/18/20 16:30 69 21 129/86 96 02/18/20 16:01 68 20 140/82 96 02/18/20 14:30 77 24 113/73 93 02/18/20 14:15 87 18 95 02/18/20 14:09 90 15 133/90 96 Cardiovascular RRR, no murmur, no edema Respiratory normal respiratory effort, lungs clear to auscultation Pre-Sedation Airway Assessment Smoking Status: Never smoker Hx Sleep Apnea: Yes Hx Difficult Intubation: No Short, Thick Neck: No Thyromental Distance: > or= 3.5 Finger Breadths Oral Cavity: + WNL Mallampati Class: III ASA: ASA3 NPO Status Date of Last Intake of Fluids: 02/18/20 Time of Last Intake of Fluids: 23:00 Date of Last Intake of Solid Food: 02/18/20 Time of Last Intake of Solid Foods: 23:00 Procedure Planning Contraindications for Sedation: none Current Medications Reviewed: Yes Notes The planned sedation has been discussed with the patient. Informed Consent was obtained. I have identified the patient, determined the appropriateness of sedation and have assessed the patient immediately prior to the procedure. All medicine(s) and interventions are by my order.
--- NOTE | 2020-02-19 14:02 | Post Anesthesia Assessment ---
Date of Service February 19, 2020 Post Sedation Assessment Vital Signs Temp Pulse Pulse Resp BP BP Pulse Ox 02/19/20 13:50 70 16 128/73 95 02/19/20 13:45 70 16 130/80 95 02/19/20 11:44 98.6 F 74 18 124/78 96 02/19/20 07:34 97.9 F 77 19 135/85 94 02/19/20 03:51 97.5 F L 68 16 126/48 L 95 02/19/20 01:37 66 02/18/20 23:13 98.2 F 78 20 117/84 95 02/18/20 20:50 73 22 137/84 95 02/18/20 20:00 73 22 137/84 95 02/18/20 19:30 73 18 127/93 97 02/18/20 19:07 87 24 143/77 H 97 02/18/20 18:00 67 20 122/77 99 02/18/20 17:30 67 19 120/77 97 02/18/20 17:00 69 16 127/85 96 02/18/20 16:30 69 21 129/86 96 02/18/20 16:01 68 20 140/82 96 02/18/20 14:30 77 24 113/73 93 02/18/20 14:15 87 18 95 02/18/20 14:09 90 15 133/90 96 Recovery Score Activity: Moves 4 extremities Respiration: Deep Breath/Cough Circulation: +/-20% PreAnes Value Consciousness: Fully Awake Oxygen Saturation: > 92% On Room Air Post Anesthesia Score: 10 Discharge Sedation Level of Care: Fast Track Phase II Post Sedation Plan On clinical assessment, the patient appears to have tolerated the sedation without complications. Patient is recovering as anticipated. Patient will continue to be monitored by nursing and may be discharged when sedation discharge criteria are met per below protocol. Upon Completions of procedure up to 15 minutes continue every 5 minute vital signs and the P.A.R. score; then discharge to a Phase I or Fast Track to Phase II per the following guidelines: * Discharge Patient to appropriate Phase II area if PAR is 8 or greater or return to pre- procedure baseline. The post - procedure orders will be as directed. * If PAR score is less than 8 or not return to pre-procedure baseline then patient will follow Phase I monitoring till PAR is reached for Phase II. The Phase I may be done in procedure room or may call to secure a Phase I area. * If naloxone or flumazenil are used for reversal, hold in Phase I for continued monitoring from when last reversal dose was given for a minimum of 60 minutes or longer pending the nurse and/or physician discretion of patient condition before discharge to Phase II. Please call the Sedation Physician to re-evaluate and complete post-note for discharge to Phase II area. Do NOT discharge from procedure sedation or Phase 1 until post- sedation evaluation note is complete by procedure /sedation MD Sedation Discharge Instructions to be given to the patient at discharge to home.
--- NOTE | 2020-02-19 14:11 | Cardiac Catheterization ---
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 Cardiac Status Clinical evaluation leading to the procedure CAD Presenation: Unstable angina Anginal Classification: CCS II Heart Failure: No Cardiogenic Shock within 24 Hours: No Cardiac Arrest within 24 Hours: No Imaging Studies Past 6 Months: Yes Stress Studies Past 6 Months: No Diagnostic Physicians Name: Solomon Hightower MD Status: Elective Closure Device Percutaneous Entry Location: Radial Closure Device: Radial Band Recommendations: CABG Intraprocedure Events Significant Disection: No Perforation: No Cardiac Cath Procedure Full Procedure Date February 19, 2020 Pre-Procedure Diagnosis Pre-Procedure Diagnosis: Acute Coronary Syndrome AUC Score AUC Score: 7 Post-Procedure Diagnosis Post-Procedure Diagnosis: Severe CAD and Normal Intracardiac Pressures Procedure(s) Performed Procedure(s) Performed: Coronary Angiography and Left Heart Cath Space Officer Solomon Hightower MD Sail Repairer(s) [place] Estimated Blood Loss Estimated Blood Loss: 15 Medication(s) Medication(s): Fentanyl, Heparin, Lidocaine 1%, Nicardipine, Nitroglycerin and Versed Summary of Findings Indication: Suspected unstable angina Access: 6 Fr slender right radial artery Catheters: [place], diagnostic JR4 Findings: LM -short, luminal irregularity LAD -medium caliber vessel, 80 to 90% ostial stenosis, proximal segment heavily calcified with diffuse moderate disease, 95% mid segment focal stenosis just prior to takeoff of second diagonal. Distal vessel with luminal irregularities as wraps around apex. Small first diagonal with severe diffuse disease Circumflex -large caliber vessel, 30 to 40% mid segment disease RCA -dominant, 100% proximal occlusion with bridging collaterals and CIELO I-II flow in mid to distal vessel. Right PLB partially fills via [id number] magdiel aterals LVEDP -11 Arterial Closure: TR band Summary: 1. Severe multivessel coronary artery disease -Heavily calcified LAD with a 80 to 90% ostial stenosis and 95% focal mid stenosis 100% proximal RCA occlusion with bridging collaterals and CIELO I-II flow in distal RCA. 2. Normal intracardiac filling pressure Recommendations: Patient with complex, high risk multivessel disease recommend cardiac surgery evaluation for CABG. Start medical management including aspirin, beta-stephanie and high intensity statin Hemodynamics Rest Ao:: 111/68/90 Final Ao: 106/63/81 LV: 11 Recommendations Recommendations: CABG Specimens Specimens: None Radiation Exposure (mGy) 1369 Contrast (mls) 50 Fluids (cc crystalloids) Fluids (cc crystalloids): 80 Drains Drains: None Anesthesia Moderate Procedural Complication(s) None Disposition PCU I attest to the content of the Intraoperative Record and any orders documented therein. Any exceptions are noted below. [facility] Card Cath Procedure Codes Cardiac Catheterization Procedure 1: Cardiovascular Cath Procedures: 01165 Coronaries and LHC (+/-LV) Moderate Sedation Procedure 1: Sedation/Anesthesia: 86454 Mod Sedation by the same physician;Init15 Min Child Age 5 & Up PG Care Time/CCT Total # of Minutes Spent Total Time Spent with Patient: Total time spent is greater than 50% in coordination of care (as documented) at patient's floor/unit and/or counseling patient:
[2020-02-19] MEDS ORDERED: ACETAMINOPHEN 325 MG TAB PO PRN (14:12)
[2020-02-19] MEDS ORDERED: NITROGLYCERIN SL 0.4 MG/TAB TAB SL PRN (14:12)
[2020-02-19] MEDS ORDERED: ONDANSETRON INJ 2 MG/ML 2 ML VIAL IV PRN (14:12)
[2020-02-19] MEDS ORDERED: SODIUM CHLORIDE 0.9% 1000ML 1,000 ML IV SCH (14:15)
[2020-02-19] MEDS: METOPROLOL TARTRATE 25 MG TAB PO SCH (20:23)
--- NOTE | 2020-02-19 21:48 | Hospitalist Progress Note ---
Date of Service February 19, 2020 Assessment & Plan (1) CAD (coronary artery disease): As seen on cardiac cath today by Dr Hightower. findings -- LM -short, luminal irregularity LAD -medium caliber vessel, 80 to 90% ostial stenosis, proximal segment heavily calcified with diffuse moderate disease, 95% mid segment focal stenosis just prior to takeoff of second diagonal. Distal vessel with luminal irregularities as wraps around apex. Small first diagonal with severe diffuse disease Circumflex -large caliber vessel, 30 to 40% mid segment disease RCA -dominant, 100% proximal occlusion with bridging collaterals and CIELO I-II flow in mid to distal vessel. Right PLB partially fills via [id number] collaterals Dr Hightower recommending CT [place] [facility] [place]. Cont asa 81mg daily; lipitor 80mg daily; metoprolol 25mg BID; ARB. Watch overnight; d/c home tomorrow with outpatient f/u with CT surgery. (2) Chest pain: 2nd to severe CAD - see above. Fortunately no evidence of acute [place]. Echo with preserved EF but septal wall motion abnormality seen. (3) Benign prostatic hyperplasia with urinary obstruction: Noted. No issues. (4) Prediabetes: Hb A1C 5.9%. counseling. dietary mod. (5) Hypertension: Controlled. Cont current regimen of meds. (6) DVT prophylaxis: lovenox daily d/c home tomorrow if stable overnight Admission and Anticipated Discharge Date Admission Date: February 18, 2020 Subjective saw patient post-cath he was aware of cath results showing severe CAD and need for CT surgery evaluation following the cath he denied any chest pain, dyspnea or abdominal pain tele overnight wnl at bedside Review of Systems Constitutional: no fever Respiratory: no cough and no dyspnea Cardiovascular: no chest pain, no dyspnea at rest and no dyspnea on exertion Gastrointestinal: no abdominal pain, no nausea and no vomiting Physical Exam Constitutional: well developed and well nourished; no acute distress and no altered mental status ENMT: external ear and nose normal, oropharynx normal Respiratory: normal respiratory effort, lungs clear to auscultation Cardiovascular: Rate/Rhythm: regular rate and regular rhythm Heart Sounds: normal S1 and normal S2; no murmur Vessels: posterior tibial pulses present and dorsalis pedis pulses present; no JVD Extremities: no edema Gastrointestinal (Abdomen): normal bowel sounds, soft, nontender, no hepatosplenomegaly Psychiatric: A+Ox3, euthymic affect Results & Data Results & Data ([facility]) Vital Signs (Past 12 Hours) Vital Signs Temp Pulse Pulse Pulse Resp BP Pulse Ox 02/19/20 19:58 36.5 C 71 16 109/71 96 02/19/20 18:58 36.8 C 74 17 99/64 L 96 02/19/20 18:17 71 20 102/63 96 02/19/20 17:35 91 H 20 116/70 95 02/19/20 17:02 73 20 117/71 95 02/19/20 16:15 69 20 111/69 96 02/19/20 15:57 36.4 C L 73 18 127/78 95 02/19/20 15:45 72 18 114/72 95 02/19/20 15:17 65 18 114/72 97 02/19/20 14:57 79 20 129/80 96 02/19/20 14:45 75 20 122/77 96 02/19/20 14:30 37 C 74 20 119/78 96 02/19/20 13:50 70 16 128/73 95 02/19/20 13:45 70 16 130/80 95 02/19/20 11:44 37.0 C 74 18 124/78 96 Laboratory Results Laboratory Results - last 24 hr 02/18/20 02/19/20 02/19/20 21:31 05:35 05:35 Sodium 142 Potassium 3.7 Chloride 108 H Carbon Dioxide 29 Anion Gap 5.0 BUN 18 Creatinine 1.12 Est Cr Clr Drug Dosing 73.0 Est GFR ( Amer) 74.6 Est GFR (Non-Af Amer) 64.4 BUN/Creatinine Ratio 16.1 Glucose 92 Estimat Average Glucose 123 Hemoglobin A1c 5.9 H Calcium 8.6 Troponin I 0.017 Triglycerides 95 Cholesterol 108 LDL Cholesterol, Calc 58 VLDL Cholesterol, Calc 19 HDL Cholesterol 31 Cholesterol/HDL Ratio 4 Hepatitis C Ab Screen 02/19/20 02/19/20 05:35 05:35 Sodium Potassium Chloride Carbon Dioxide Anion Gap BUN Creatinine Est Cr Clr Drug Dosing Est GFR ( Amer) Est GFR (Non-Af Amer) BUN/Creatinine Ratio Glucose Estimat Average Glucose Hemoglobin A1c Calcium Troponin I 0.023 Triglycerides Cholesterol LDL Cholesterol, Calc VLDL Cholesterol, Calc HDL Cholesterol Cholesterol/HDL Ratio Hepatitis C Ab Screen Neg PG Care Time/CCT Total # of Minutes Spent Total Time Spent with Patient: Total time spent is greater than 50% in coordination of care (as documented) at patient's floor/unit and/or counseling patient: Coding Level of Care Code 53475 Subseq Obs Care Lvl 2 Diagnoses CAD (coronary artery disease) I25.118 Coronary Disease-Associated Artery/Lesion type: [place] artery [place] vs. transplanted heart: [place] heart Associated angina: with other forms of angina Chest pain R07.9 Chest pain type: unspecified Benign prostatic hyperplasia with urinary obstruction N40.1; N13.8 Prediabetes R73.03 Hypertension I10 Hypertension type: essential hypertension DVT prophylaxis Z29.9 (1) CAD (coronary artery disease) Coronary Disease-Associated Artery/Lesion type: [place] artery [place] vs. transplanted heart: [place] heart Associated angina: with other forms of angina Qualified Code(s): I25.118 - Atherosclerotic heart disease of [place] coronary artery with other forms of angina pectoris (2) Chest pain Chest pain type: unspecified Qualified Code(s): R07.9 - Chest pain, unspecified (3) Hypertension Hypertension type: essential hypertension Qualified Code(s): I10 - Essential (primary) hypertension
[2020-02-19] MEDS: ENOXAPARIN INJ 40 MG/0.4 ML SYR SQ SCH (22:35)
--- NOTE | 2020-02-20 06:59 | Electrocardiogram Report ---
Test Reason : Blood Pressure : / mmHG Vent. Rate : 073 BPM Atrial Rate : 073 BPM P-R Int : 186 ms QRS Dur : 082 ms QT Int : 436 ms P-R-T Axes : 060 -79 231 degrees QTc Int : 480 ms Normal sinus rhythm Left anterior fascicular block T wave abnormality, consider inferior ischemia T wave abnormality, consider anterolateral ischemia Prolonged QT Abnormal ECG When compared with ECG of 18-FEB-2020 13:59, T wave inversion now evident in Inferior leads Confirmed by Demarcus Sandhu ([id number]) on 02/20/2020 6:59:29 AM Referred By: Macrina Ocampo Confirmed By:Demarcus Sandhu
[2020-02-20] MEDS ORDERED: ATORVASTATIN 40 MG TAB PO SCH (09:00)
[2020-02-20 09:26] LABS: BUN Creatinine Ratio 15.6 (10-20); Creatinine Clr Calc Pharmacy 64.2 ml/min; Est GFR (African American) 64.1; Est GFR (Non-African American) 55.3; Potassium 3.6 mmol/L (3.5-5.1)
[2020-02-20] MEDS: METOPROLOL TARTRATE 25 MG TAB PO SCH (09:32)
[2020-02-20] MEDS: ASPIRIN 81 MG ECTAB PO SCH (09:32)
[2020-02-20] MEDS: PANTOprazole 40 MG TAB PO SCH (09:32)
[2020-02-20] MEDS: LOSARTAN POTASSIUM 50 MG TAB PO SCH (09:33)
[2020-02-20] MEDS: MULTIVITAMIN TAB PO SCH (09:33)
[2020-02-20] MEDS: INDAPAMIDE 1.25 MG TAB PO SCH (09:33)
--- NOTE | 2020-02-20 11:35 | Communication Note ---
Date of Service: February 20, 2020 I repeated a BP during my bedside rounds this am -- left arm - 127/82. I walked with patient in hallway -- we went about 200 feet -- no chest pain, dy spnea, diaphoresis. [place] well. No chest pain overnight. Had a <10 sec episode of right lower abdominal discomfort last night - self- resolved. Has not had any symptoms similar to pre-hospitalization. ok for d/c home. f/u CT surgery as being scheduled by [facility] cardiology. Rajinder Tate MD
--- NOTE | 2020-02-20 11:36 | Discharge Summary ---
Date of Service date of admission - February 18, 2020 date of discharge - February 20, 2020 Admission HPI Per Admitting Provider This patient is a 74-year-old male with a history of HTN, GERD, BPH, DONTRELL, OA, PVCs, and anxiety, who presents to the ER with exertional chest pain that started 2 weeks ago. Typically is able to walk a quarter of a mile without difficulty but since 2 weeks ago he developed chest tightness with walking that resolved with rest. He also tried walking on a treadmill in the basement and when he got to 3 mph, he developed chest tightness again that was relieved with rest. The chest pressure is in the substernal area and does also radiate with some tingling sensation to the left shoulder, but otherwise no radiation. It is very mild to moderate in severity. Again, comes on with exertion and is relieved with rest. It is not associated with diaphoresis, nausea, or shortness of breath. Interestingly, he has been able to go up and down a flight of stairs at home without any problems. He has never had any issues with his heart in the past. He is a non-smoker, and has a history of hypertension, but is otherwise fairly healthy. He does have a family history of a father who had heart disease and of a heart attack at age 76, and a sister who just had open heart surgery/CABG at age 71. He called his PCPs office who recommended him to go to the emergency room but the patient did not go. His PCP then attempted to get a stress echocardiogram approved as an outpatient, but insurance required him to be seen by his PCP in the office. He came to the PCPs office today to try to get approved for stress echocardiogram, and an ECG performed there showed new anterolateral T wave inversions. PCP then advised him to come to the ER for expedited work-up. His ECG here showed normal sinus rhythm with a left anterior fascicular block and T wave inversions in the anterolateral leads which is now changed from previous. He has not had any chest pain in the last week because he stopped exerting himself. His blood work in the ER was normal with normal CBC, coags, and BMP as well as normal LFTs. Troponin was mildly detectable at 0.018. A chest x-ray was performed which showed no acute process. He will be admitted on observation overnight for suspected unstable angina. Principal Diagnosis chest pain 2nd to severe, newly-diagnosed CAD Discharge Exam Constitutional well developed and well nourished; no acute distress and no altered mental status ENMT external ear and nose normal, oropharynx normal Respiratory normal respiratory effort, lungs clear to auscultation Cardiovascular Rate/Rhythm: regular rate and regular rhythm Heart Sounds: normal S1 and normal S2; no murmur Vessels: posterior tibial pulses present and dorsalis pedis pulses present; no JVD Extremities: no edema Gastrointestinal (Abdomen) normal bowel sounds, soft, nontender, no hepatosplenomegaly Skin no hematoma over right wrist; no ecchymoses Psychiatric A+Ox3, euthymic affect Discharge Data Allergies Allergy/AdvReac Type Severity Reaction Status Date / Time Penicillins Allergy Intermediate ITCHING/FEV Verified 02/18/20 14:40 ER Fish Containing Products AdvReac Mild SEAFOOD- Verified 02/18/20 14:40 VOMITING Consultations [facility] [place] Procedures Performed Operation Date: 02/19/20 13:00 Actual Procedures Cath, Left with Cors and Vent - Solomon Hightower MD Findings: LM -short, luminal irregularity LAD -medium caliber vessel, 80 to 90% ostial stenosis, proximal segment heavily calcified with diffuse moderate disease, 95% mid segment focal stenosis just prior to takeoff of second diagonal. Distal vessel with luminal irregularities as wraps around apex. Small first diagonal with severe diffuse disease Circumflex -large caliber vessel, 30 to 40% mid segment disease RCA -dominant, 100% proximal occlusion with bridging collaterals and CIELO I-II flow in mid to distal vessel. Right PLB partially fills via [id number] collaterals LVEDP -11 Arterial Closure: TR band Summary: 1. Severe multivessel coronary artery disease -Heavily calcified LAD with a 80 to 90% ostial stenosis and 95% focal mid stenosis 100% proximal RCA occlusion with bridging collaterals and CIELO I-II flow in distal RCA. 2. Normal intracardiac filling pressure. Ordered Studies Echocardiogram: * EF 55-60% * abnormal septal motion but rest of LV wall motion wnl * normal LV thickness * normal valve function Hospital Course (1) CAD (coronary artery disease): As seen on cardiac cath by Dr Solomon Hightower, [facility] [place] Cardiology. Findings -- LM -short, luminal irregularity LAD -medium caliber vessel, 80 to 90% ostial stenosis, proximal segment heavily calcified with diffuse moderate disease, 95% mid segment focal stenosis just prior to takeoff of second diagonal. Distal vessel with luminal irregularities as wraps around apex. Small first diagonal with severe diffuse disease Circumflex -large caliber vessel, 30 to 40% mid segment disease RCA -dominant, 100% proximal occlusion with bridging collaterals and CIELO I-II flow in mid to distal vessel. Right PLB partially fills via [id number] collaterals Dr Hightower recommended CT surgery evaluation at for consideration of CABG as outpatient. The following were added prior to discharge - * aspirin 81mg daily * lipitor 80mg daily * metoprolol 25mg BID Losartan 100mg daily will be continued. Lipid profile -- total cholesterol 108; LDL 58; HDL 31; triglycerides 95. (2) Chest pain: 2nd to severe CAD - see above. Fortunately no evidence of acute [place] during the stay with negative troponins x 3. EKG with lateral and inferior T wave inversions. Echo with preserved EF but septal wall motion abnormality seen. Telemetry normal while here. He was instructed to perform NO HEAVY EXERTIONAL ACTIVITIES after discharge. Referral to [place] CT surgery to be arranged for consideration of CABG. Nitro SL to be used prn prescribed at discharge. Post-cath instructions given. Reasons to seek emergency medical attention discussed in detail. (3) Benign prostatic hyperplasia with urinary obstruction: Noted. No issues. (4) Prediabetes: Hb A1C 5.9%. Handouts given. Dietary control / dietary modification. (5) Hypertension: Controlled. Cont current regimen of meds. Patient advised to check his BP at home. If systolic BPs continue to remain low would stop the indapamide. Total Time Total Time Spent Total Time Spent (In Minutes): 35 Total Time Includes: Examination of the Patient, Discharge Planning, Medication Reconciliation and Communication With Other Providers Discharge Plan Discharge Items Patient Disposition: Home - Self-Care Reason For Visit: CHEST PAIN Discharge Diagnosis: Chest Pain due to Coronary Artery Disease as confirmed on heart catheterization Activity: Per Instructions section Non-emergency contact: Primary Care Provider and Chemical Operations Specialist Call non-emergency contact if: you have any medication questions, your symptoms worsen, your pain is not controlled, your pain is worsening, your pain is unusual for you and your pain is concerning for you Follow-up/Referrals: Rajinder Rubalcava MD [Primary Care Provider] - Sae Hightower MD [Physician] - (call Dr Hightower' office on 02/22/20, to confirm follow-up appointment with him as well as CT surgery ) Diet: [facility] Attending Provider Instructions: You were admitted to [facility] for chest pains. Heart catheterization was done by Dr Solomon Hightower showing severe coronary artery disease (plaque build-up in the arteries of the heart leading to blockages). Dr Hightower advised referral and evaluation by CT surgery at . These arrangements are being made for you. You did NOT have evidence of heart attack during the stay. Echocardiogram showed good heart function despite the coronary artery disease. Heart monitoring was normal while here. Recommendations - 1. NO HEAVY exertional activities - no yard work, no strenuous indoor activities, no operating heavy machinery, no cutting the law, no exercise at gym/running/biking. Light walks are ok but not far distances and at slow pace. 2. aspirin 81mg daily. Buy [id number]. 3. metoprolol 25mg twice daily every day. Prescription sent to pharmacy. 4. atorvastatin (lipitor) 80mg daily every day. Prescription sent to pharmacy. 5. keep a bottle of nitroglycerin tablets with you at ALL TIMES. If you have chest pain that persists take a nitroglycerin and seek medical attention right away. 6. you have evidence of early pre-diabetes. Please see handouts. Your hemoglobin a1c was 5.9% (prediabetes range). Please speak with Dr Rubalcava about dietary modifications. This can be diet-controlled. 7. check your blood pressure daily. If your systolic blood pressure (top number) is about 100/105 or less consistently please HOLD your indapamide. 8. stop your omeprazole for now. Follow-up - see separate section Return to [facility] if - * you have chest pains * you have to use nitroglycerin tablets * you have shortness of breath * you have severe sweats, especially if associated with chest pain or shortness of breath * you have fever over 100.4 degrees * you have significant nausea, vomiting or abdominal pain * any other concerns Addtl Overlocker Provider Instructions: ACTIVITY RECOMMENDATIONS following your heart catheterization: It is common to feel weak and fatigue for a few days. * Do not drive or operate any motorized equipment for the next three days. * Limit stair usage (2 or 3 trips a day only) for the next three days. * Do not lift anything heavier than 10 pounds for the next three days with the right arm/hand. * Do not engage in vigorous exercise or any sports. Light walks only. NO sexual activity. * You may shower the day after your procedure, but do not immerse the area for three days. Cleanse the site gently with soap and water. SPECIAL CARE INSTRUCTIONS: * You may replace the pressure dressing or band-aid the morning after the procedure. * After your procedure, it is normal to have a small bruise or small lump at the site. Examine your site daily for any change in the bruise or lump, redness, swelling, drainage or numbness. Notify your doctor if any change. BLEEDING: * If there is a small amount of bleeding at the site, lie down and apply firm pressure with a clean cloth for ten minutes. When the bleeding stops, lie quietly keeping the procedure limb straight for six hours. Notify your doctor as soon as possible. * If the bleeding does not stop after ten minutes or if there is a large amount of bleeding or spurting, call 911 immediately. Continue to lie down and hold firm pressure until help arrives. SKIN IRRITATION: * You may experience some redness and/or swelling in the area where radiation was administered. If any skin irritation occurs, please contact your family physician. Pending Studies at Discharge: No Stand-Alone Forms: My [facility] [employer], Smoking Cessation Medications and DC Order Prescriptions: New nitroglycerin [Nitrostat] 0.4 mg Tablet, Sublingual 0.4 mg sublingual PRN PRN (Reason: chest pain) Qty: 1 RF: 0 metoprolol tartrate 25 mg Tablet 25 mg PO BID Qty: 60 RF: 2 aspirin 81 mg Tablet,Delayed Release (Dr/Ec) 81 mg PO QAM Qty: 90 RF: 3 atorvastatin [Lipitor] 80 mg tablet 80 mg PO DAILY Qty: 30 RF: 5 Continued alprazolam 0.25 mg tablet 0.25 mg PO BID PRN (Reason: anxiety) RF: 0 multivitamin [Daily Multi-Vitamin] tablet 1 tab PO DAILY RF: 0 indapamide 1.25 mg tablet 1.25 mg PO QAM Qty: 90 RF: 3 losartan [Cozaar] 100 mg tablet 100 mg PO DAILY Qty: 90 RF: 3 Discontinued omeprazole 40 mg capsule,delayed release(DR/EC) 40 mg PO DAILY Qty: 30 RF: 1 Discharge Orders: Discharge Order (Routine); Ordered 02/20/20 Ordered By: Rajinder Longo/Other Patient Handouts: Prediabetes, CAD, A1C Admission Data Admit Date/Time: 02/18/20 15:46 Attending Provider: Rajinder Tate Admit Provider: Seema Regalado Primary Care Provider: Rajinder Rubalcava Other Providers: Seema Regalado ; Demarcus Sandhu Other Interventions: Discharge Summary Assessment (RN) Last Done: 02/20/20 12:11 DC Date/Time DO NOT enter until pt leaves facility: 02/20/20 12:56 Coding Level of Care Code 36219 OBS Care - Discharge Diagnoses CAD (coronary artery disease) I25.118 Associated angina: with other forms of angina Coronary Disease-Associated Artery/Lesion type: [place] artery [place] vs. transplanted heart: [place] heart Chest pain R07.9 Chest pain type: unspecified Benign prostatic hyperplasia with urinary obstruction N40.1; N13.8 Prediabetes R73.03 Hypertension I10 Hypertension type: essential hypertension
--- NOTE | 2020-02-20 12:17 | Cardiology Progress Note ---
Date of Service February 20, 2020 Assessment & Plan (1) CAD (coronary artery disease): Chest pain free overnight. Hemodynamically stable. Post procedure labs stable. No access site complications. From a cardiac standpoint OK with discharge today. -- Outpatient CABG evaluation to be scheduled. -- We discussed home activity restrictions -- Tolerating new beta-stephanie. If orthostasis at home would stop indapamide. -- Continue aspirin, statin and losartan. Follow-up with cardiology post CABG. Admission and Anticipated Discharge Date Admission Date: February 18, 2020 Subjective Brief twinges of chest/arm symptoms unlike prior presenting chest pain. No other new concerns. Review of Systems Review of Systems: All systems reviewed & are unremarkable except as noted in HPI & below Physical Exam Physical Exam: General: Comfortable, no acute distress Eyes: Sclerae anicteric, extraocular movements intact HENT: Oropharynx clear mucous membranes moist Lungs: Clear to auscultation bilaterally, no rhonchi or wheezes Cardiac: Regular rate and rhythm, no murmurs, rubs or gallops. Abdomen: Soft, nontender, nondistended, positive bowel sounds. Neuro: Nonfocal Psych: Alert orient x3, normal affect and mood Extremities/Vascular: -- 2+ radial bilaterally Results & Data ([facility]) Vital Signs (Past 12 Hours) Vital Signs Temp Pulse Pulse Resp BP Pulse Ox 02/20/20 12:11 97.7 F 65 59 L 18 129/77 96 02/20/20 12:08 97.7 F 59 L 18 129/77 96 02/20/20 07:03 98.1 F 70 18 96/56 L 96 02/20/20 03:55 97.7 F 65 15 94/57 L 94 PG Care Time/CCT Total # of Minutes Spent Total Time Spent with Patient: Total time spent is greater than 50% in coordination of care (as documented) at patient's floor/unit and/or counseling patient: Coding Level of Care Code 98753 Subseq Hosp Care Lvl 3 Diagnoses CAD (coronary artery disease) I25.118 Coronary Disease-Associated Artery/Lesion type: [place] artery [place] vs. transplanted heart: [place] heart Associated angina: with other forms of angina (1) CAD (coronary artery disease) Coronary Disease-Associated Artery/Lesion type: [place] artery [place] vs. transplanted heart: [place] heart Associated angina: with other forms of angina Qualified Code(s): I25.118 - Atherosclerotic heart disease of [place] coronary artery with other forms of angina pectoris
--- NOTE | 2020-02-20 13:45 | Electrocardiogram Report ---
Test Reason : Blood Pressure : / mmHG Vent. Rate : 070 BPM Atrial Rate : 070 BPM P-R Int : 194 ms QRS Dur : 076 ms QT Int : 450 ms P-R-T Axes : 043 -44 121 degrees QTc Int : 486 ms Normal sinus rhythm Left axis deviation Low voltage QRS T wave abnormality, consider anterolateral ischemia Prolonged QT Abnormal ECG When compared with ECG of 19-FEB-2020 06:58, T wave inversion no longer evident in Inferior leads T wave inversion less evident in Lateral leads Confirmed by Nick Ledesma ([id number] on 02/20/2020 1:45:42 PM Referred By: Macrina Ocampo Confirmed By:Nick Ledesma
== END 2020-02-20 12:56 | disposition home or self-care (01) ==
LOC: 2W 13:49 → ED 13:49 → SUATTDRO 15:46 → 2W 20:50 → 2S 02-19 15:12